=== PATIENT | female | born 1950 | race African-American/Black ===

== ENCOUNTER 2021-11-18 16:38 | Observation (INO) | payer OTHER, MEDICARE, SELFPAY ==
[~2021-11-18] VITALS: Ht 162.6 cm; Wt 78.0 kg
[~2021-11-18 16:38] MED LIST: AMLO10TA PO; ASPI-1052 PO; ATOR10TA PO; GABA100C PO; LEVEMIR SUBQ; LISI-487 PO; POTA10TA74 PO
[2021-11-18 16:40] VITALS: BP 161/70
--- NOTE | 2021-11-18 17:00 | NUR ---
71 y/o Female BIB self for c/o sharp 6/10 chest pain radiating to right arm and neck x this morning. AOX4, able to make needs known. S1S2 noted upon ausculation, lungs clear bilat. Resp even and unlabored on RA. VSS. Reports she is experiencing gen weakness. No slurring of speech, denies any vision changes. Strength bilat, pulses strong equal bilat radial and pedal. PmHx: Renal disease, HTN, DM, Home meds: See list Allergies: Denies
--- NOTE | 2021-11-18 17:05 | NUR ---
EKG done and results shown to ZACK Camara
--- NOTE | 2021-11-18 17:11 | NUR ---
Radiology at bedside to complete chest xray
[2021-11-18] MEDS ORDERED: ASPIRIN 325 MG TAB PO ONE (17:20)
[2021-11-18] MEDS ORDERED: MORPHINE SULFATE 2 MG/ML SYR IVP ONE (17:20)
[2021-11-18 17:29] LABS: BASOPHILS # (AUTO) 0.1 K/uL (0.00-0.22); BASOPHILS % (AUTO) 1.5 % (0.0-2.0); EOSINOPHILS # (AUTO) 0.1 K/uL (0-0.4); EOSINOPHILS % (AUTO) 1.9 % (0.0-4.0); HEMATOCRIT 27.9 % (36-48); HEMOGLOBIN 9.2 g/dL (12.0-16.0); LYMPHOCYTES # (AUTO) 1.6 K/uL (2.5-16.5); MEAN CORPUSCULAR HEMOGLOBIN 25 pg (27-31); MEAN CORPUSCULAR HGB CONC 33 g/dL (33-37); MEAN CORPUSCULAR VOLUME 73.9 fL (80-94); MONOCYTES # (AUTO) 0.7 K/uL (0.8-1.0); MONOCYTES % (AUTO) 11.8 % (1.7-9.3); NEUTROPHILS # (AUTO) 3.5 K/uL (1.8-7.7); NEUTROPHILS % (AUTO) 58.8 % (42.2-75.2); PLATELET COUNT (AUTO) 238 K/uL (140-450); RED BLOOD CELL COUNT(AUTO) 3.77 MIL/uL (4.20-5.40); RED CELL DISTRIBUTION WIDTH 17.2 % (11.6-13.7)
[2021-11-18] MEDS ORDERED: ASPIRIN 81 MG TAB.CHEW ONE (17:30)
[2021-11-18] MEDS ORDERED: ASPIRIN 81 MG TAB.CHEW PO STA (17:41)
--- NOTE | 2021-11-18 17:42 | NUR ---
asa 325mg not given, order changed to 324mg chewable asa per ermd Flamina
[2021-11-18 17:45] LABS: ALBUMIN 3.8 g/dL (3.4-5.0); ANION GAP 12.4 (8-16); ASPARTATE AMINOTRANSFERASE 23 U/L (15-37); CARBON DIOXIDE 27.9 mmol/L (21-32); CHLORIDE 104 mmol/L (98-107); GLUCOSE 76 mg/dL (74-106); POTASSIUM 3.3 mmol/L (3.5-5.1); SODIUM SERUM 141 mmol/L (136-145); TOTAL BILIRUBIN 0.3 mg/dL (0.0-1.0); UREA NITROGEN, BLOOD 43 mg/dL (7-18)
[2021-11-18] MEDS ORDERED: ALLO100T21 PO (18:28)
[2021-11-18] MEDS ORDERED: POTA10TA70 PO (18:29)
[2021-11-18] MEDS ORDERED: ACETAMINOPHEN 325 MG TAB PO PRN (19:05)
[2021-11-18] MEDS ORDERED: MAGNESIUM OXIDE 400 MG TAB PO PRN (19:05)
[2021-11-18] MEDS ORDERED: HYDROcodone/APAP 5/325 MG 1 TAB TAB PO PRN (19:05)
[2021-11-18] MEDS ORDERED: DEXTROSE 50% 50 ML SYR IVP PRN (19:05)
[2021-11-18] MEDS ORDERED: ONDANSETRON 4 MG/2 ML VIAL IVP PRN (19:05)
[2021-11-18] MEDS ORDERED: INSULIN LISPRO SLIDING SCALE 100 UNITS/ML VIAL SUBQ PRN (19:05)
[2021-11-18] MEDS ORDERED: MORPHINE SULFATE 4 MG/ML SYR IVP PRN (19:05)
[2021-11-18] MEDS ORDERED: MAG SULF 2000 MG/WATER PREMIX 50 ML IV PRN (19:05)
[2021-11-18] MEDS ORDERED: KCL 20 MEQ/WATER INJ PREMIX 200 ML IV PRN (19:05)
--- NOTE | 2021-11-18 19:12 | NUR ---
SPOKE TO MARLO IN LAB, WILL START RUNNING COVID SWAB NOW
--- NOTE | 2021-11-18 19:14 | NUR ---
MRSA SWAB COLLECTED AT THIS TIME AND WALKED DOWN TO LAB
--- NOTE | 2021-11-18 19:17 | NUR ---
TRANSFER OF CARE GIVEN TO MIGUEL ANGEL CABRERA.
--- NOTE | 2021-11-18 20:33 | NUR ---
REPORT GIVEN TO KIERSTEN CABRERA AT THIS TIME. CLEARED FOR TELE TRANSPORT TO [facility]
[2021-11-18 20:55] VITALS: BP 148/87
--- NOTE | 2021-11-18 21:00 | NUR ---
RECEIVED PATIENT FROM ER. TRANSFERRED SAFELY FROM [facility] TO BED. TELEMONITORING INITIATED WITH SR RHYTHM ON THE MONITOR. NO COMPLAINTS OF PAIN. VS TAKEN AND RECORDED. ADMISSION DOCUMENTATIONS DONE. ORIENTED TO ROOM AND CALL LIGHT. WILL CONTINUE TO MONITOR AND ASSESS PATIENT.
[2021-11-18] MEDS: BLOOD GLUCOSE MONITORING 1 DEV DEV FS SCH (21:21)
[2021-11-18] MEDS: POTASSIUM CHLORIDE 10 MEQ TABER PO PRN (21:32)
[2021-11-19] VITALS: BP 143/71
[2021-11-19 04:00] VITALS: BP 146/82
[2021-11-19] MEDS: BLOOD GLUCOSE MONITORING 1 DEV DEV FS SCH ×3 (06:31→12:03)
--- NOTE | 2021-11-19 06:33 | NUR ---
ALL DUE MEDS GIVEN AT THIS TIME. BS MONITORING DONE, NO COVERAGE GIVEN. PATIENT VS STABLE. NO FURTHER COMPLAINTS . KEPT WARM AND DRY.
--- NOTE | 2021-11-19 07:28 | NUR ---
RECEIVED REPORT FROM PM SHIFT RN FOR CONTINUITY OF CARE. PT. ALERT,ORIENTED, STABLE ON ROOM AIR. NO DISTRESS NOTED. ALL SAFETY MEASURES IN PLACE. WILL CONTINUE TO MONITOR THE PT.
[2021-11-19 07:47] LABS: BASOPHILS % (AUTO) 0.6 % (0.0-2.0); EOSINOPHILS # (AUTO) 0.1 K/uL (0-0.4); EOSINOPHILS % (AUTO) 2.4 % (0.0-4.0); HEMOGLOBIN 8.9 g/dL (12.0-16.0); LYMPHOCYTES # (AUTO) 1.9 K/uL (2.5-16.5); LYMPHOCYTES % (AUTO) 33.3 % (20.5-51.1); MEAN CORPUSCULAR HEMOGLOBIN 25 pg (27-31); MEAN CORPUSCULAR HGB CONC 33 g/dL (33-37); MEAN CORPUSCULAR VOLUME 75.1 fL (80-94); MONOCYTES # (AUTO) 0.6 K/uL (0.8-1.0); MONOCYTES % (AUTO) 10.4 % (1.7-9.3); NEUTROPHILS % (AUTO) 53.3 % (42.2-75.2); PLATELET COUNT (AUTO) 214 K/uL (140-450); RED CELL DISTRIBUTION WIDTH 17.7 % (11.6-13.7); WHITE BLOOD COUNT (AUTO) 5.7 K/uL (4.8-10.8)
[2021-11-19 07:57] LABS: ALBUMIN 3.2 g/dL (3.4-5.0); ANION GAP 12.3 (8-16); ASPARTATE AMINOTRANSFERASE 19 U/L (15-37); CARBON DIOXIDE 28.1 mmol/L (21-32); CHLORIDE 108 mmol/L (98-107); CREATININE 2.9 mg/dL (0.6-1.3); GLUCOSE 104 mg/dL (74-106); MAGNESIUM 2.2 mg/dL (1.8-2.4); POTASSIUM 3.4 mmol/L (3.5-5.1); SODIUM SERUM 145 mmol/L (136-145); TOTAL BILIRUBIN 0.3 mg/dL (0.0-1.0); UREA NITROGEN, BLOOD 38 mg/dL (7-18)
[2021-11-19 08:00] VITALS: BP 142/80
--- NOTE | 2021-11-19 08:21 | NUR ---
PATIENT HAS BEEN SCREENED AND CATEGORIZED MODERATE NUTRITION RISK. PATIENT WILL BE SEEN WITHIN 3-5 DAYS OF ADMISSION. 11/21/2021-11/23/[address]
[2021-11-19] MEDS ORDERED: DOCUSATE SODIUM 100 MG GELCAP PO SCH (09:00)
--- NOTE | 2021-11-19 10:00 | NUR ---
PT. ALERT,ORIENTED. STABLE ON ROOM AIR. ADMINISTRED SCHEDULED MEDICATION. PT. TOLERATED WELL. SAFETY MEASURES IN PLACE, WILL CONTINUE TO MONITOR THE PT.
[2021-11-19] MEDS: POTASSIUM CHLORIDE 10 MEQ TABER PO PRN (11:17)
[2021-11-19 12:00] VITALS: BP_SYST 133; BP_SYST 142; BP_DIAS 72; BP_DIAS 80
--- NOTE | 2021-11-19 12:23 | NUR ---
PT. SITTING IN THE BED. NO DISTRESS NOTED. BS CHEKED IS 109. NO INSULIN COVERAGE AT THIS TIME. CALL LIGHT WITHIN REACH. WILL CONTINUE TO MONITOR THE PT.
--- NOTE | 2021-11-19 12:28 | NUR ---
FOR POTASSIUM LEVEL 3.4 TODAY. ADMINISTERED K DUR 40MEQ PO X1 PRN ORDER.PT. TOLERATED WELL.
--- NOTE | 2021-11-19 13:38 | NUR ---
RECEIVED DISCHARGE ORDER FROM MD. DISCHARGE TO HOME. CALLED TO PT'S DAUGHTER LEIGHTON ON PH NO. [phone]. SHE SAID SHE WILL COME TO [employer] LEAD HER MOTHER WITHIN 1 TO 2 HR.. WILL FOLLOW UP.
--- NOTE | 2021-11-19 15:25 | NUR ---
PATIENT DISCHARGED TO HOME MD ORDER. PT. STABLE UPON DISCHARGE, ALERT AND ORIENTED. NOT IN DISTRESS. PT'S DAUGHTER CAME TO VENDOR REPRESENTATIVES HER. DROPPED PT. TO THE CAR VIA WHEELCHAIR BY ALBERTO ORTIZ.
== END 2021-11-19 15:15 | disposition home or self-care (01) ==
LOC: MED 16:38 → MTU 19:05
PROVIDERS: ADMIT Internal Medicine; ATTEND Internal Medicine
DX: R07.89 Other chest pain (principal); Z20.822 Contact with and (suspected) exposure to COVID-19; R94.31 Abnormal electrocardiogram [ECG] [EKG]; I51.7 Cardiomegaly; E87.6 Hypokalemia; E88.09 Other disorders of plasma-protein metabolism, not elsewhere classified; D50.9 Iron deficiency anemia, unspecified; I12.9 Hypertensive chronic kidney disease with stage 1 through stage 4 chronic kidney disease, or unspecified chronic kidney disease; E11.22 Type 2 diabetes mellitus with diabetic chronic kidney disease; N18.9 Chronic kidney disease, unspecified; D63.1 Anemia in chronic kidney disease; E78.5 Hyperlipidemia, unspecified; Z79.82 Long term (current) use of aspirin; Z79.899 Other long term (current) drug therapy
CPT/HCPCS: 36415; 71045; 80053; 82948; 83735; 84484; 85025; 87081; 87426; 93005; 96372; 96374; 99285; G0378; J1644; J2270; Q0092